=== PATIENT | female | born 1955 | race Two or more races ===

== ENCOUNTER 2018-01-12 10:37 | Outpatient (CLI) | payer OTHER | END 2018-01-12 10:43 | disposition home or self-care (01) | LOC: TOM 10:37 | DX: K57.32 Diverticulitis of large intestine without perforation or abscess without bleeding (principal); K58.9 Irritable bowel syndrome, unspecified ==

== ENCOUNTER 2019-08-28 07:17 | Inpatient (IN) | payer OTHER ==
[~2019-08-28] VITALS: Ht 180.3 cm; Wt 58.1 kg
[2019-08-28] MEDS ORDERED: ANTIVERT PO (12:10)
[2019-08-30] MEDS ORDERED: MECLIZINE HCL25 MG PO (10:28)
[2019-09-02] MEDS ORDERED: PERCOCET 5-3251 EACH PO (10:47)
[2019-09-02] MEDS ORDERED: LEVSIN0.125 MG PO (10:47)
[2019-09-02] MEDS ORDERED: INTESTINEX680 M1 PO (10:47)
== END 2019-09-02 13:41 | disposition home or self-care (01) | DRG 331 ==
LOC: O/R 08-30 05:35 → SURG 08-30 05:35 → SURH 08-30 07:00 → SURG 08-30 10:50 → O/R 08-30 11:45 → SURH 08-30 11:45 → SURG 09-02 13:41
PROVIDERS: ADMIT Colon & Rectal Surgery; ATTEND Colon & Rectal Surgery
PROC: 0DJD8ZZ Inspection of Lower Intestinal Tract, Via Natural or Artificial Opening Endoscopic (ICD-10-PCS; 2019-08-30)
PROC: 0DTN4ZZ Resection of Sigmoid Colon, Percutaneous Endoscopic Approach (ICD-10-PCS; principal; 2019-08-30 07:00)
DX: K57.32 Diverticulitis of large intestine without perforation or abscess without bleeding (principal); K58.9 Irritable bowel syndrome, unspecified

== ENCOUNTER 2020-10-25 08:15 | Day surgery (SDC) | payer OTHER ==
[~2020-10-25 08:15] MED LIST: ANTIVERT PO; INTESTINEX680 M1 PO; LEVSIN0.125 MG PO; MECLIZINE HCL25 MG PO; PERCOCET 5-3251 EACH PO
== END 2020-10-25 13:50 | disposition home or self-care (01) ==
LOC: AMB-ENDOS 08:15
PROVIDERS: ATTEND Colon & Rectal Surgery
DX: K62.89 Other specified diseases of anus and rectum (principal); K64.0 First degree hemorrhoids; Z20.822 Contact with and (suspected) exposure to COVID-19